=== PATIENT | male | born 1980 | race Caucasian/White ===

== ENCOUNTER 2017-03-23 17:43 | Emergency (ER) | payer SELFPAY ==
[2017-03-23] MEDS ORDERED: HYDROcodone/Acetaminophen 5/325 mg Tablet ONE (18:35)
== END 2017-03-23 18:35 | disposition home or self-care (01) ==
LOC: SCSER 17:43
DX: M54.5 Low back pain (principal); I10 Essential (primary) hypertension; F17.210 Nicotine dependence, cigarettes, uncomplicated
CPT/HCPCS: 99283

== ENCOUNTER 2017-11-02 08:41 | Emergency (ER) | payer SELFPAY | END 2017-11-02 09:15 | disposition home or self-care (01) | LOC: SCSER 08:41 | DX: H60.92 Unspecified otitis externa, left ear (principal); I10 Essential (primary) hypertension; F17.210 Nicotine dependence, cigarettes, uncomplicated; Z79.899 Other long term (current) drug therapy | CPT/HCPCS: 99282 ==

== ENCOUNTER 2018-06-14 18:13 | Emergency (ER) | payer SELFPAY | END 2018-06-14 18:56 | disposition left against medical advice (07) | LOC: ERS 18:13 | DX: Z53.21 Procedure and treatment not carried out due to patient leaving prior to being seen by health care provider (principal) ==

== ENCOUNTER 2018-10-27 13:59 | Emergency (ER) | payer SELFPAY ==
[2018-10-27] MEDS ORDERED: Dexamethasone 4 MG TAB ONE (14:39)
[2018-10-27] MEDS ORDERED: Ketorolac Tromethamine 60 MG/2 ML VIAL ONE (14:57)
== END 2018-10-27 15:20 | disposition home or self-care (01) ==
LOC: SCSER 13:59
DX: J02.9 Acute pharyngitis, unspecified (principal); I10 Essential (primary) hypertension; F17.210 Nicotine dependence, cigarettes, uncomplicated
CPT/HCPCS: 87081; 87430; 96372; J1885; J8540

== ENCOUNTER 2018-10-30 15:25 | Emergency (ER) | payer SELFPAY | END 2018-10-30 15:51 | disposition home or self-care (01) | LOC: SCSER 15:25 | DX: J02.9 Acute pharyngitis, unspecified (principal); I10 Essential (primary) hypertension; F17.210 Nicotine dependence, cigarettes, uncomplicated | CPT/HCPCS: 99282 ==

== ENCOUNTER 2019-03-29 12:59 | Emergency (ER) | payer BC, SELFPAY ==
[2019-03-29 13:41] LABS: #Basophils 0.1 thou/uL (0.0-0.2); #Eosinphils 0.5 thou/uL (0.0-0.7); #Monocytes 0.9 thou/uL (0.11-0.59); #Neutrophils 6.6 thou/uL (1.40-6.50); %Basophils 0.8 % (0.0-1.0); %Eosinophils 4.6 % (0.0-10.0); %Lymphocytes 19.9 % (21.0-51.0); %Monocytes 9.1 % (0.0-10.0); %Neutrophils 65.5 % (42.0-75.0); Hemoglobin 17.7 g/dL (14.0-18.0); Mean Corpuscular HGB CONC 33.5 g/dL (32.0-36.0); Mean Corpuscular Hemoglobin 28.5 pg (27.0-31.0); Mean Corpuscular Volume 85.1 fL (78.0-98.0); Mean Platelet Volume 8.1 fL (7.4-10.4); Platelet Count 235 thou/uL (130-400); RBC Distribution Width 10.7 % (11.5-14.5); Red Blood Cell (RBC) Count 6.21 mill/uL (4.70-6.10)
--- NOTE | 2019-03-29 13:59 | RAD ---
2 view chest: [03/29/2019] Comparison:01/07/2008 HISTORY: Cough and congestion FINDINGS: Heart and mediastinal contours are grossly unremarkable. No pneumothorax or pleural fluid. No focal consolidation or alveolar edema. IMPRESSION: No acute findings.
[2019-03-29 14:00] LABS: ALT (SGPT) 21 U/L (8-55); AST (SGOT) 12 U/L (5-34); Albumin 4.2 g/dL (3.5-5.0); Alkaline Phosphatase 121 U/L (40-110); Anion Gap 14 mmol/L (10-20); BUN (Urea Nitrogen) 10 mg/dL (8.9-20.6); Bilirubin, Total 0.8 mg/dL (0.2-1.2); CK (CPK) 37 U/L (30-200); Calc. Creatinine Clearance 0 mL/min (70-130); Calcium 9.4 mg/dL (7.8-10.44); Carbon Dioxide 22 mmol/L (22-29); Chloride 103 mmol/L (98-107); Estimated GFR-MDRD 87; Globulin 2.9 g/dL (2.4-3.5); Glucose 416 mg/dL (70-105); Lipase 20 U/L (8-78); Potassium 4.1 mmol/L (3.5-5.1); Protein, Total 7.1 g/dL (6.0-8.3); Sodium 135 mmol/L (136-145)
== END 2019-03-29 14:26 | disposition home or self-care (01) ==
LOC: SCSER 12:59
DX: J11.1 Influenza due to unidentified influenza virus with other respiratory manifestations (principal); E11.9 Type 2 diabetes mellitus without complications; F17.210 Nicotine dependence, cigarettes, uncomplicated; I10 Essential (primary) hypertension
CPT/HCPCS: 36415; 71046; 80053; 82550; 83690; 84484; 85025; 87804; 93005; J7620